=== PATIENT | female | born 1965 | race Caucasian/White ===

== ENCOUNTER → 2023-11-23 11:25 | Outpatient (REF) | payer OTHER, SELFPAY | LOC: HWRAD 11:25 | PROVIDERS: ATTENDING PHYSICIAN Nurse Practitioner Family; FAMILY PHYSICIAN Family Medicine | DX: N39.492 Postural (urinary) incontinence (principal); R10.2 Pelvic and perineal pain; Z12.31 Encounter for screening mammogram for malignant neoplasm of breast; M81.0 Age-related osteoporosis without current pathological fracture | CPT/HCPCS: 76830; 76856; 77063; 77067; 77080 ==

== ENCOUNTER → 2023-12-29 18:25 | Outpatient (REF) | payer OTHER, SELFPAY | LOC: MRI 3T 18:25 | PROVIDERS: ATTENDING PHYSICIAN Obstetrics & Gynecology Gynecology; FAMILY PHYSICIAN Family Medicine | DX: N83.201 Unspecified ovarian cyst, right side (principal); N70.11 Chronic salpingitis; R93.89 Abnormal findings on diagnostic imaging of other specified body structures | CPT/HCPCS: 72197; A9575 ==

== ENCOUNTER → 2024-11-26 15:16 | Outpatient (REF) | payer OTHER, SELFPAY | LOC: RCS 15:16 | PROVIDERS: ATTENDING PHYSICIAN Orthopaedic Surgery; FAMILY PHYSICIAN Family Medicine | DX: Z01.818 Encounter for other preprocedural examination (principal) | CPT/HCPCS: 93005 ==

== ENCOUNTER 2024-11-27 06:27 | Day surgery (SDC) | payer OTHER, SELFPAY ==
[2024-11-27] VITALS (10 sets, daily range): BP systolic 112–153; BP diastolic 61–80; BMI 21.0
[2024-11-27] MEDS: TYLENOL 1000 MG PO (10:47)
[2024-11-27] MEDS: CELEBREX 200 MG PO (10:47)
[2024-11-27] MEDS: NORMOSOL-R/PLASMALYTE-A 1000 IV (10:48)
== END 2024-11-27 15:45 | disposition home or self-care (01) ==
LOC: SDS 06:27
PROVIDERS: ATTENDING PHYSICIAN Orthopaedic Surgery
DX: S42.002A Fracture of unspecified part of left clavicle, initial encounter for closed fracture (principal); W19.XXXA Unspecified fall, initial encounter
CPT/HCPCS: 23515; 73010; 76000; C1713